=== PATIENT | male | born 1940 | race Hispanic/Latino ===

== ENCOUNTER 2021-08-28 11:23 | Outpatient (CLI) | payer SELFPAY ==
--- NOTE | 2021-08-28 14:47 | XRay Report ---
CHEST 2 VIEWS INDICATION / CLINICAL INFORMATION: HISTORY OF HTN. COMPARISON: None available. FINDINGS: SUPPORT DEVICES: None. HEART / MEDIASTINUM: Heart is normal size. Thoracic aorta is mildly tortuous. LUNGS / PLEURA: No significant pulmonary or pleural abnormality. No pneumothorax. ADDITIONAL FINDINGS: No significant additional findings. IMPRESSION: 1. No acute findings. Signer Name: Shalini Robles MD Signed: 08/28/2021 2:40 PM Workstation Name: [id number]
--- NOTE | 2021-08-29 08:28 | Electrocardiograph Report ---
[facility] Test Date: 2021-08-28 Test Time: 11:39:17 Pat Name: SORAYA DYSON Department: Room: Gender: M Insights Manager: RIA : [id number] Requested By: SAGAR JONES Order Number: [id number] Reading MD: Dequan Ojeda Measurements Intervals [place] Rate: 70 P: 65 OK: 176 QRS: 5 QRSD: 102 T: 26 QT: 457 QTc: 494 Interpretive Statements Sinus rhythm Multiple ventricular premature complexes No previous ECG available for comparison Electronically Signed On 08-29-2021 8:28:34 EDT by Dequan Ojeda
== END 2021-08-28 11:24 | disposition home or self-care (01) ==
LOC: XRAY 11:23
PROVIDERS: ATTEND Internal Medicine
DX: I10 Essential (primary) hypertension (principal); Q25.46 Tortuous aortic arch; Z72.0 Tobacco use
CPT/HCPCS: 71046; 93005